=== PATIENT | male | born 1935 | race Caucasian/White ===

== ENCOUNTER 2018-05-08 14:31 | Inpatient (IN) | payer MEDICARE, OTHER ==
[2018-05-08] MEDS ORDERED: Acetaminophen 325 MG Tab PO PRN (18:01)
[2018-05-08] MEDS ORDERED: Lactulose Soln 10 GM/15 ML 30 ML UD Cup PO PRN (18:01)
[2018-05-08] MEDS ORDERED: Ondansetron 4 MG Tab.DIS PO PRN (18:01)
[2018-05-08] MEDS ORDERED: Ondansetron 4 MG/2 ML SDV IV PRN (18:01)
[2018-05-08] MEDS ORDERED: Temazepam 15 MG Cap PO PRN (18:01)
[2018-05-08] MEDS ORDERED: Central TPN 1 ML IV SCH (18:15)
[2018-05-08] MEDS ORDERED: Prochlorperazine 10 MG Tab PO PRN (18:21)
--- NOTE | 2018-05-08 18:41 | PCM.HP ---
H&P History of Present Illness - General Date of Service: 05/08/18 Admit Problem/Dx: Admission Diagnosis/Problem Admission Diagnosis/Problem Carcinoma of esophagus Source of Information: Patient, Old Records - History of Present Illness Initial Comments - Free Text/Narative: Patient admitted swing bed from [place] for ongoing hydration by TPN and physical therapy for strengthening. Patient relates initially was having issues with constipation that was difficult to resolve. Required intervention to clear this and ultimately felt he needed a colonoscopy and EGD. Colonoscopy was noted to have polyps but no evidence of cancer. On January 03, 2018, EGD was done and found to have friable tissue. 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 On February 13, Upper GI endoscopy revealed a mass in the gastric cardia. PET scan done later that month did not show any evidence of metastasis. Patient started concurrent chemoradiation therapy on and finished on 04-18-2018. After completion of radiation, patient was not eating or drinking well and had a 15# weight loss over 2 weeks. Did try outpatient IV therapy but continued to deteriorate. Was taken to [place] by a friend due to concerns of overall status and safety of living alone. Patient was started on TPN as he opted to not have a feeding tube placed. Wasgiven IV dexamehtasone to help with radiation-induced dysphagia. Onset of Symptoms: Reports: Gradual Duration of Symptoms: Reports: Week(s):, Improving Location: Reports: Neck, Abdomen, Generalized Associated Symptoms: Reports: Loss of Appetite, Nausea/Vomiting, Weakness. Denies: Confusion, Chest Pain, Cough, Fever/Chills, Shortness of Breath, Syncope - Related Data Allergies/Adverse Reactions: Allergies Allergy/AdvReac Type Severity Reaction Status Date / Time No Known Allergies Allergy Verified 05/08/18 15:24 Home Medications: Home Meds Prochlorperazine [Compazine] 10 mg PO QID PRN 05/08/18 [History] Past Medical History Gastrointestinal History: Reports: PUD Musculoskeletal History: Reports: Osteoarthritis Oncologic (Cancer) History: Reports: Esophageal Social & Family History - Tobacco Use Smoking Status *Q: Never Smoker - Caffeine Use Caffeine Use: Reports: None - Recreational Drug Use Recreational Drug Use: No - Living Situation & Occupation Living situation: Reports: Single, Alone 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rancher) H&P Review of Systems - Review of Systems: Review Of Systems: See Below General: Reports: Malaise, Weakness, Fatigue, Decreased Appetite. Denies: Fever , Chills HEENT: Reports: Dysphasia. Denies: Ear Pain, Headaches, Rhinitis, Sore Throat, Visual Changes Pulmonary: Denies: Shortness of Breath, Cough Cardiovascular: Denies: Chest Pain, Edema, Lightheadedness Gastrointestinal: Reports: Nausea. Denies: Abdominal Pain, Black Stool, Bloody Stool, Constipation, Diarrhea, Vomiting Genitourinary: Reports: Retention, Other (larsen cath present) Musculoskeletal: Reports: No Symptoms Skin: Reports: No Symptoms Psychiatric: Reports: No Symptoms Exam - Exam Exam: See Below - Vital Signs Vital Signs: Last Vital Signs Temp 97.8 F 05/08/18 18:00 Pulse 76 05/08/18 18:00 Resp 20 05/08/18 18:00 BP 111/62 05/08/18 18:00 Pulse Ox 98 05/08/18 18:00 Weight: 168 lb 11.2 oz - Exam General: Alert, Oriented HEENT: Conjunctiva Clear, Mucosa Moist & [place], Posterior Pharynx Clear Neck: Supple, Other (no radiation ramos/redness noted to neck/chest) Lungs: Clear to Auscultation, Decreased Breath Sounds Cardiovascular: Regular Rate, Regular Rhythm GI/Abdominal Exam: Normal Bowel Sounds, Soft, Non-Tender Extremities: Normal Inspection, No Pedal Edema Skin: Warm, Dry Neuro Extensive - Mental Status: Alert, Oriented x3 Psychiatric: Alert, Normal Affect, Normal Mood - Problem List (1) Esophagus cancer SNOMED Code(s): 635860571 ICD Code: C15.9 - MALIGNANT NEOPLASM OF ESOPHAGUS, UNSPECIFIED Status: Acute Priority: High Current Visit: Yes Qualifiers: Malignant neoplasm of esophagus location: lower third Qualified Code(s): C15.5 - Malignant neoplasm of lower third of esophagus Problem List Initiated/Reviewed/Updated: Yes Orders Last 24hrs: Active Orders 24 hr Category Date Time Status Patient Status [ADT] Routine ADT 05/08/18 17:54 Ordered Communication Order [RC] ROUTINE Care 05/08/18 18:01 Ordered Height and Weight [RC] DAILY Care 05/08/18 17:54 Ordered Intake and Output [RC] QSHIFT Care 05/08/18 18:00 Ordered Oxygen Therapy [RC] PRN Care 05/08/18 17:54 Ordered Up With Assistance [RC] ASDIRECTED Care 05/08/18 17:54 Ordered Vital Signs [RC] Q4H Care 05/08/18 17:54 Ordered PT Evaluation and Treatment [CONS] Routine Cons 05/08/18 18:01 Ordered Mechanical Soft Diet [DIET] Diet 05/08/18 Dinner Ordered Acetaminophen [Tylenol] Med 05/08/18 18:01 Ordered 650 mg PO Q4H PRN Central TPN [Total Parenteral Nutrition, Central] 1,950 Med 05/08/18 18:21 Ordered ml IV Q24H Enoxaparin [Lovenox] Med 05/08/18 18:15 Ordered 30 mg SUBCUT Q24H Finasteride [Proscar] Med 05/08/18 20:00 Ordered 5 mg PO BEDTIME Heparin Sodium [Heparin Lock Flush 100 Units/ML] Med 05/08/18 18:15 Ordered 300 units FLUSH Q24H Lactulose [Cephulac] Med 05/08/18 18:01 Ordered 20 gm PO DAILY PRN Ondansetron [Zofran ODT] Med 05/08/18 18:01 Ordered 4 mg PO Q4H PRN Ondansetron [Zofran] Med 05/08/18 18:01 Ordered 4 mg IV Q4H PRN Pantoprazole [ProTONIX] Med 05/09/18 07:00 Ordered 40 mg PO DAILY@0700 Prochlorperazine [Compazine] Med 05/08/18 18:21 Ordered 10 mg PO QID PRN Tamsulosin [Flomax] Med 05/08/18 20:00 Ordered 0.4 mg PO BEDTIME Temazepam [Restoril] Med 05/08/18 18:01 Ordered 15 mg PO BEDTIME PRN Resuscitation Status Routine Resus Stat 05/08/18 17:54 Ordered Medication Orders Acetaminophen (Tylenol) 650 mg PO Q4H PRN PRN Reason: Pain (Mild 1-3)/fever Enoxaparin Sodium (Lovenox) 30 mg SUBCUT Q24H [facility] Finasteride (Proscar) 5 mg PO BEDTIME [facility] Heparin Sodium (Porcine) (Heparin Lock Flush 100 Units/Ml) 300 units FLUSH Q24H [facility] Non-Formulary Medication (Total Parenteral Nutrition, Central) 1,950 mls @ 81.25 mls/hr IV Q24H [facility] Lactulose (Cephulac) 20 gm PO DAILY PRN PRN Reason: Constipation Ondansetron HCl (Zofran Odt) 4 mg PO Q4H PRN PRN Reason: nausea, able to take PO Ondansetron HCl (Zofran) 4 mg IV Q4H PRN PRN Reason: Nausea/Vomiting Pantoprazole Sodium (Protonix) 40 mg PO DAILY@0700 [facility] Prochlorperazine Maleate (Compazine) 10 mg PO QID PRN PRN Reason: Nausea/Vomiting Tamsulosin HCl (Flomax) 0.4 mg PO BEDTIME [facility] Temazepam (Restoril) 15 mg PO BEDTIME PRN PRN Reason: Insomnia Assessment/Plan Comment:: Patient admitted to swing bed for ongoing nutritional replacement by TPN and PT for strengthening.
[2018-05-08] MEDS ORDERED: [UNRECOGNIZED DRUG - NUTRITION] IV SCH (19:00)
[2018-05-08] MEDS: Tamsulosin 0.4 MG Cap.ER PO SCH (19:39)
[2018-05-08] MEDS: Finasteride 5 MG Tab PO SCH (19:39)
[2018-05-08] MEDS: Enoxaparin 40 MG/0.4 ML Syringe SUBCUT SCH (19:39)
[2018-05-09] MEDS: Pantoprazole 40 MG Tab.CR PO SCH (06:53)
[2018-05-09] MEDS: [UNRECOGNIZED DRUG - NUTRITION] IV SCH (16:03)
[2018-05-09] MEDS: Finasteride 5 MG Tab PO SCH (19:42)
[2018-05-09] MEDS: Enoxaparin 40 MG/0.4 ML Syringe SUBCUT SCH (19:42)
[2018-05-09] MEDS: Tamsulosin 0.4 MG Cap.ER PO SCH (19:42)
[2018-05-10] MEDS: Pantoprazole 40 MG Tab.CR PO SCH (07:04)
[2018-05-10] MEDS: [UNRECOGNIZED DRUG - NUTRITION] IV SCH (16:15)
[2018-05-10] MEDS: Tamsulosin 0.4 MG Cap.ER PO SCH (19:25)
[2018-05-10] MEDS: Finasteride 5 MG Tab PO SCH (19:25)
[2018-05-10] MEDS: Enoxaparin 40 MG/0.4 ML Syringe SUBCUT SCH (19:26)
[2018-05-11] MEDS: Pantoprazole 40 MG Tab.CR PO SCH (07:14)
[2018-05-11] MEDS: [UNRECOGNIZED DRUG - NUTRITION] IV SCH (16:10)
[2018-05-11] MEDS: Enoxaparin 40 MG/0.4 ML Syringe SUBCUT SCH (19:23)
[2018-05-11] MEDS: Finasteride 5 MG Tab PO SCH (19:23)
[2018-05-11] MEDS: Tamsulosin 0.4 MG Cap.ER PO SCH (19:23)
[2018-05-12] MEDS: Pantoprazole 40 MG Tab.CR PO SCH (06:50)
[2018-05-12 08:15] LABS: CHLORIDE,CL 104 mEq/L (98-106); SODIUM,NA 137 mEq/L (136-145)
[2018-05-12] MEDS: [UNRECOGNIZED DRUG - NUTRITION] IV SCH (19:16)
[2018-05-12] MEDS: Enoxaparin 40 MG/0.4 ML Syringe SUBCUT SCH (19:20)
[2018-05-12] MEDS: Tamsulosin 0.4 MG Cap.ER PO SCH (19:20)
[2018-05-12] MEDS: Finasteride 5 MG Tab PO SCH (19:21)
[2018-05-13] MEDS: Ciprofloxacin 500 MG Tab PO SCH ×2 (06:14→18:44)
[2018-05-13] MEDS: Pantoprazole 40 MG Tab.CR PO SCH (06:14)
[2018-05-13] MEDS: [UNRECOGNIZED DRUG - NUTRITION] IV SCH (16:04)
[2018-05-13] MEDS: Enoxaparin 40 MG/0.4 ML Syringe SUBCUT SCH (19:33)
[2018-05-13] MEDS: Tamsulosin 0.4 MG Cap.ER PO SCH (19:33)
[2018-05-13] MEDS: Finasteride 5 MG Tab PO SCH (19:33)
[2018-05-14] MEDS: Ciprofloxacin 500 MG Tab PO SCH ×2 (06:00→18:49)
[2018-05-14] MEDS: Pantoprazole 40 MG Tab.CR PO SCH (06:00)
[2018-05-14] MEDS: [UNRECOGNIZED DRUG - NUTRITION] IV SCH (16:22)
[2018-05-14] MEDS: Finasteride 5 MG Tab PO SCH (20:06)
[2018-05-14] MEDS: Tamsulosin 0.4 MG Cap.ER PO SCH (20:06)
[2018-05-14] MEDS: Enoxaparin 40 MG/0.4 ML Syringe SUBCUT SCH (20:06)
[2018-05-15] MEDS: Pantoprazole 40 MG Tab.CR PO SCH (06:46)
[2018-05-15] MEDS: Ciprofloxacin 500 MG Tab PO SCH ×2 (06:46→19:43)
[2018-05-15] MEDS: [UNRECOGNIZED DRUG - NUTRITION] IV SCH (16:12)
[2018-05-15] MEDS: Finasteride 5 MG Tab PO SCH (19:43)
[2018-05-15] MEDS: Tamsulosin 0.4 MG Cap.ER PO SCH (19:43)
[2018-05-15] MEDS: Enoxaparin 40 MG/0.4 ML Syringe SUBCUT SCH (19:43)
[2018-05-16] MEDS: Pantoprazole 40 MG Tab.CR PO SCH (06:12)
[2018-05-16] MEDS: Ciprofloxacin 500 MG Tab PO SCH ×2 (06:12→18:12)
[2018-05-16] MEDS: [UNRECOGNIZED DRUG - NUTRITION] IV SCH (16:16)
[2018-05-16] MEDS: Finasteride 5 MG Tab PO SCH (19:57)
[2018-05-16] MEDS: Enoxaparin 40 MG/0.4 ML Syringe SUBCUT SCH (19:57)
[2018-05-16] MEDS: Tamsulosin 0.4 MG Cap.ER PO SCH (19:57)
[2018-05-17] MEDS: Ciprofloxacin 500 MG Tab PO SCH ×2 (06:24→18:34)
[2018-05-17] MEDS: Pantoprazole 40 MG Tab.CR PO SCH (06:24)
[2018-05-17] MEDS: [UNRECOGNIZED DRUG - NUTRITION] IV SCH (16:16)
[2018-05-17] MEDS: Tamsulosin 0.4 MG Cap.ER PO SCH (19:35)
[2018-05-17] MEDS: Finasteride 5 MG Tab PO SCH (19:36)
[2018-05-17] MEDS: Enoxaparin 40 MG/0.4 ML Syringe SUBCUT SCH (19:36)
[2018-05-18] MEDS: Pantoprazole 40 MG Tab.CR PO SCH (06:01)
[2018-05-18] MEDS: Ciprofloxacin 500 MG Tab PO SCH (06:01)
[2018-05-18] MEDS: [UNRECOGNIZED DRUG - NUTRITION] IV SCH (16:04)
[2018-05-18] MEDS: Finasteride 5 MG Tab PO SCH (19:26)
[2018-05-18] MEDS: Enoxaparin 40 MG/0.4 ML Syringe SUBCUT SCH (19:26)
[2018-05-18] MEDS: Tamsulosin 0.4 MG Cap.ER PO SCH (19:26)
[2018-05-19] MEDS: Pantoprazole 40 MG Tab.CR PO SCH (06:26)
[2018-05-19 08:09] LABS: CHLORIDE,CL 107 mEq/L (98-106); SODIUM,NA 141 mEq/L (136-145)
[2018-05-19] MEDS ORDERED: [UNRECOGNIZED DRUG - NUTRITION] IV SCH (16:00)
[2018-05-19] MEDS: Finasteride 5 MG Tab PO SCH (19:36)
[2018-05-19] MEDS: Tamsulosin 0.4 MG Cap.ER PO SCH (19:36)
[2018-05-19] MEDS: Enoxaparin 40 MG/0.4 ML Syringe SUBCUT SCH (19:36)
[2018-05-20] MEDS: Pantoprazole 40 MG Tab.CR PO SCH (06:34)
[2018-05-20] MEDS ORDERED: [UNRECOGNIZED DRUG - NUTRITION] IV SCH (16:00)
[2018-05-20] MEDS: Finasteride 5 MG Tab PO SCH (19:30)
[2018-05-20] MEDS: Enoxaparin 40 MG/0.4 ML Syringe SUBCUT SCH (19:30)
[2018-05-20] MEDS: Tamsulosin 0.4 MG Cap.ER PO SCH (19:30)
[2018-05-21] MEDS: Pantoprazole 40 MG Tab.CR PO SCH (06:53)
[2018-05-21] MEDS: Tamsulosin 0.4 MG Cap.ER PO SCH (19:38)
[2018-05-21] MEDS: Enoxaparin 40 MG/0.4 ML Syringe SUBCUT SCH (19:38)
[2018-05-21] MEDS: Finasteride 5 MG Tab PO SCH (19:38)
[2018-05-22] MEDS: Pantoprazole 40 MG Tab.CR PO SCH (06:19)
--- NOTE | 2018-05-22 09:19 | PCM.PN ---
- General Info Date of Service: 05/22/18 Admission Dx/Problem (Free Text): Admission Diagnosis/Problem Admission Diagnosis/Problem Carcinoma of esophagus Functional Status: Reports: Pain Controlled, Tolerating Diet, Ambulating, Urinating - Review of Systems General: Reports: Weakness. Denies: Fever HEENT: Reports: No Symptoms Pulmonary: Denies: Shortness of Breath, Cough Cardiovascular: Denies: Chest Pain, Edema, Lightheadedness Gastrointestinal: Denies: Abdominal Pain, Nausea, Vomiting Genitourinary: Reports: No Symptoms Musculoskeletal: Reports: Other (Has weakness in left ankle due to previous disability) Skin: Reports: No Symptoms Neurological: Reports: No Symptoms - Patient Data Vitals - Most Recent: Last Vital Signs Temp 98.1 F 05/22/18 07:37 Pulse 78 05/22/18 07:37 Resp 18 05/22/18 07:37 BP 117/68 05/22/18 07:37 Pulse Ox 97 05/22/18 07:37 Weight - Most Recent: 174 lb 6.4 oz Med Orders - Current: Current Medications Acetaminophen (Tylenol) 650 mg PO Q4H PRN PRN Reason: Pain (Mild 1-3)/fever Enoxaparin Sodium (Lovenox) 40 mg SUBCUT Q24H [facility] Last Admin: 05/21/18 19:38 Dose: 40 mg Finasteride (Proscar) 5 mg PO BEDTIME [facility] Last Admin: 05/21/18 19:38 Dose: 5 mg Heparin Sodium (Porcine) (Heparin Lock Flush 100 Units/Ml) 300 units FLUSH 1600 [facility] Last Admin: 05/21/18 18:28 Dose: 300 units Lactulose (Cephulac) 20 gm PO DAILY PRN PRN Reason: Constipation Last Admin: 05/14/18 07:24 Dose: 20 gm Ondansetron HCl (Zofran Odt) 4 mg PO Q4H PRN PRN Reason: nausea, able to take PO Ondansetron HCl (Zofran) 4 mg IV Q4H PRN PRN Reason: Nausea/Vomiting Pantoprazole Sodium (Protonix) 40 mg PO DAILY@0700 [facility] Last Admin: 05/22/18 06:19 Dose: 40 mg Prochlorperazine Maleate (Compazine) 10 mg PO QID PRN PRN Reason: Nausea/Vomiting Tamsulosin HCl (Flomax) 0.4 mg PO BEDTIME [facility] Last Admin: 05/21/18 19:38 Dose: 0.4 mg Temazepam (Restoril) 15 mg PO BEDTIME PRN PRN Reason: Insomnia Discontinued Medications Ciprofloxacin (Ciprofloxacin Hcl) 500 mg PO 0700,1900 [facility] Stop: 05/18/18 07:01 Last Admin: 05/18/18 06:01 Dose: 500 mg Heparin Sodium (Porcine) (Heparin Lock Flush 100 Units/Ml) 300 units FLUSH Q24H [facility] Heparin Sodium (Porcine) (Heparin Lock Flush 100 Units/Ml) 300 units FLUSH Q24H [facility] Last Admin: 05/19/18 12:56 Dose: Not Given Non-Formulary Medication (Total Parenteral Nutrition, Central) 1 mls @ 0.042 mls/hr IV Q24H [facility] Last Admin: 05/08/18 18:29 Dose: Not Given Non-Formulary Medication (Total Parenteral Nutrition, Central) 1,950 mls @ 81.25 mls/hr IV Q24H [facility] Last Admin: 05/08/18 18:50 Dose: 81.25 mls/hr Non-Formulary Medication (Total Parenteral Nutrition, Central) 1,950 mls @ 81.25 mls/hr IV 1600 [facility] Last Admin: 05/18/18 16:04 Dose: 81.25 mls/hr Non-Formulary Medication (Total Parenteral Nutrition, Central) 1,950 mls @ 60 mls/hr IV 1600 [facility] Last Admin: 05/19/18 16:18 Dose: 60 mls/hr Non-Formulary Medication (Total Parenteral Nutrition, Central) 1,950 mls @ 40 mls/hr IV 1600 [facility] Last Admin: 05/20/18 15:57 Dose: 40 mls/hr - Exam General: Alert, Oriented HEENT: Mucous Membr. Moist/[place] Neck: Supple Lungs: Clear to Auscultation, Normal Respiratory Effort Cardiovascular: Regular Rate, Regular Rhythm GI/Abdominal Exam: Normal Bowel Sounds, Soft, Non-Tender Extremities: Normal Inspection, No Pedal Edema Skin: Warm, Dry Neurological: No New Focal Deficit - Problem List & Annotations (1) Esophagus cancer SNOMED Code(s): 135768619 Code(s): C15.9 - MALIGNANT NEOPLASM OF ESOPHAGUS, UNSPECIFIED Status: Acute Priority: High Current Visit: Yes Qualifiers: Malignant neoplasm of esophagus location: lower third Qualified Code(s): C15.5 - Malignant neoplasm of lower third of esophagus - Problem List Review Problem List Initiated/Reviewed/Updated: Yes - Assessment Assessment:: Esophageal Cancer - Plan Plan:: Patient admitted to swing bed for ongoing nutritional replacement by TPN and PT for strengthening. 05-22-2018 Patient seen today for 14 day recert. He is doing well. TPN has been discontinued as patient has been tolerating an oral diet and is gaining weight. Has no pain or dysphagia. No nausea or vomiting. He does have difficulty with weakness in his left ankle, is unstable from a previous deformity. 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 His source of running water is in his basement, no indoor toilet but patient is not concerned about this. Has managed "for 85 years like this". Physical therapy does feel he is ambulating well and can care for himself at this point. Plan for discharge home tomorrow. Patient declines any services at home.
[2018-05-22] MEDS: Finasteride 5 MG Tab PO SCH (19:38)
[2018-05-22] MEDS: Enoxaparin 40 MG/0.4 ML Syringe SUBCUT SCH (19:38)
[2018-05-22] MEDS: Tamsulosin 0.4 MG Cap.ER PO SCH (19:38)
[2018-05-23] MEDS: Pantoprazole 40 MG Tab.CR PO SCH (07:10)
--- NOTE | 2018-05-23 22:13 | PCM.DCSUM1 ---
Discharge Summary - Hospital Course Free Text/Narrative:: Patient admitted swing bed from [place] due need for TPN following treatment for adenocarcinoma of the esophagus. Patient initially had issues with constipation and presented for evaluation of this. Did require treatment for the constipation and thus required further work up with colonoscopy and EGD. EGD was found to note friable tissue, biopsies done which was positive. PET scan negative. Started chemoradiation therapy but after completion of radiation , had trouble eating or drinking and continued to lose weight. Lost 15# over 2 weeks. Initially tried outpatient IV therapy without success. Was taken to [place] and started on TPN. Discharged from [place] to [facility] for ongoing TPN and physical therapy. Diagnosis: Stroke: No - Discharge Data Discharge Date: 05/23/18 Discharge Disposition: Home, Self-Care 01 Condition: Good - Discharge Diagnosis/Problem(s) (1) Esophagus cancer SNOMED Code(s): 097720731 ICD Code: C15.9 - MALIGNANT NEOPLASM OF ESOPHAGUS, UNSPECIFIED Status: Acute Priority: High Qualifiers: Malignant neoplasm of esophagus location: lower third Qualified Code(s): C15.5 - Malignant neoplasm of lower third of esophagus - Patient Summary/Data Complications: none Consults: Consultations 05/08/18 18:01 PT Evaluation and Treatment [CONS] Routine Hospital Course: patient has done well since admission. Has slowly returned to eating a normal diet. Has gained weight since admission. TPN has been able to be discontinued as a result. Patient does have ankle pain/weakness chronically which has hindered his physical therapy but his strength has returned. He is ambulating well, handling stairs now. Constipation concerns have been controlled. Not requiring pain medications at this point. Will return home. Declines home health. Does have a friend who looks in on him daily. Have been concerned about patient's home safety/situation as he does not have an indoor toilet and only running water is from a spicket in the basement but he declines any services and has been caring for self over the week here. Will follow up at [facility] as previously scheduled. - Patient Instructions Diet: Usual Diet as Tolerated Activity: As Tolerated - Discharge Plan *PRESCRIPTION DRUG MONITORING PROGRAM REVIEWED*: No *COPY OF PRESCRIPTION DRUG MONITORING REPORT IN PATIENT CELINE: No Prescriptions/Med Rec: Pantoprazole [ProTONIX] 40 mg PO DAILY@0700 #30 tab.cr Tamsulosin [Flomax] 0.4 mg PO BEDTIME #30 cap.er Home Medications: Home Meds Prochlorperazine [Compazine] 10 mg PO QID PRN 05/08/18 [History] Pantoprazole [ProTONIX] 40 mg PO DAILY@0700 #30 tab.cr 05/22/18 [Rx] Tamsulosin [Flomax] 0.4 mg PO BEDTIME #30 cap.er 05/22/18 [Rx] Oxygen Therapy Mode: Nasal Cannula - Discharge Summary/Plan Comment DC Time >30 min.: No - General Info Date of Service: 05/23/18 Admission Dx/Problem (Free Text: Admission Diagnosis/Problem Admission Diagnosis/Problem Carcinoma of esophagus Functional Status: Reports: Pain Controlled, Tolerating Diet, Ambulating - Review of Systems General: Reports: Weakness. Denies: Fever, Fatigue HEENT: Reports: No Symptoms Pulmonary: Denies: Shortness of Breath, Cough Cardiovascular: Denies: Chest Pain, Edema, Lightheadedness Gastrointestinal: Denies: Abdominal Pain, Nausea, Vomiting Genitourinary: Denies: Dysuria Musculoskeletal: Reports: No Symptoms Skin: Reports: No Symptoms Neurological: Reports: No Symptoms - Patient Data Vitals - Most Recent: Last Vital Signs Temp 97.5 F 05/23/18 07:25 Pulse 80 05/23/18 07:25 Resp 20 05/23/18 07:25 BP 120/71 05/23/18 07:25 Pulse Ox 95 05/23/18 07:25 Weight - Most Recent: 173 lb 3.2 oz Med Orders - Current: Current Medications Discontinued Medications Acetaminophen (Tylenol) 650 mg PO Q4H PRN PRN Reason: Pain (Mild 1-3)/fever Ciprofloxacin (Ciprofloxacin Hcl) 500 mg PO 0700,1900 [facility] Stop: 05/18/18 07:01 Last Admin: 05/18/18 06:01 Dose: 500 mg Enoxaparin Sodium (Lovenox) 40 mg SUBCUT Q24H [facility] Last Admin: 05/22/18 19:38 Dose: 40 mg Finasteride (Proscar) 5 mg PO BEDTIME [facility] Last Admin: 05/22/18 19:38 Dose: 5 mg Heparin Sodium (Porcine) (Heparin Lock Flush 100 Units/Ml) 300 units FLUSH Q24H [facility] Heparin Sodium (Porcine) (Heparin Lock Flush 100 Units/Ml) 300 units FLUSH Q24H [facility] Last Admin: 05/19/18 12:56 Dose: Not Given Heparin Sodium (Porcine) (Heparin Lock Flush 100 Units/Ml) 300 units FLUSH 1600 [facility] Last Admin: 05/22/18 16:55 Dose: 300 units Non-Formulary Medication (Total Parenteral Nutrition, Central) 1 mls @ 0.042 mls/hr IV Q24H [facility] Last Admin: 05/08/18 18:29 Dose: Not Given Non-Formulary Medication (Total Parenteral Nutrition, Central) 1,950 mls @ 81.25 mls/hr IV Q24H [facility] Last Admin: 05/08/18 18:50 Dose: 81.25 mls/hr Non-Formulary Medication (Total Parenteral Nutrition, Central) 1,950 mls @ 81.25 mls/hr IV 1600 [facility] Last Admin: 05/18/18 16:04 Dose: 81.25 mls/hr Non-Formulary Medication (Total Parenteral Nutrition, Central) 1,950 mls @ 60 mls/hr IV 1600 [facility] Last Admin: 05/19/18 16:18 Dose: 60 mls/hr Non-Formulary Medication (Total Parenteral Nutrition, Central) 1,950 mls @ 40 mls/hr IV 1600 [facility] Last Admin: 05/20/18 15:57 Dose: 40 mls/hr Lactulose (Cephulac) 20 gm PO DAILY PRN PRN Reason: Constipation Last Admin: 05/14/18 07:24 Dose: 20 gm Ondansetron HCl (Zofran Odt) 4 mg PO Q4H PRN PRN Reason: nausea, able to take PO Ondansetron HCl (Zofran) 4 mg IV Q4H PRN PRN Reason: Nausea/Vomiting Pantoprazole Sodium (Protonix) 40 mg PO DAILY@0700 [facility] Last Admin: 05/23/18 07:10 Dose: 40 mg Prochlorperazine Maleate (Compazine) 10 mg PO QID PRN PRN Reason: Nausea/Vomiting Tamsulosin HCl (Flomax) 0.4 mg PO BEDTIME [facility] Last Admin: 05/22/18 19:38 Dose: 0.4 mg Temazepam (Restoril) 15 mg PO BEDTIME PRN PRN Reason: Insomnia - Exam General: Reports: Alert, Oriented HEENT: Reports: Mucous Membr. Moist/[place] Neck: Reports: Supple Lungs: Reports: Clear to Auscultation, Normal Respiratory Effort Cardiovascular: Reports: Regular Rate, Regular Rhythm GI/Abdominal Exam: Normal Bowel Sounds, Soft, Non-Tender Extremities: Normal Inspection, No Pedal Edema Skin: Reports: Warm, Dry Neurological: Reports: No New Focal Deficit
== END 2018-05-23 13:35 | disposition home or self-care (01) | DRG 948 ==
LOC: CC.MS 17:16 → UNDOADMIN 17:16 → CC.MS 17:54
PROVIDERS: ADMIT Family Medicine; ATTEND Family Medicine
PROC: 3E0336Z Introduction of Nutritional Substance into Peripheral Vein, Percutaneous Approach (ICD-10-PCS; principal; 2018-05-08)
DX: R53.1 Weakness (principal); C15.5 Malignant neoplasm of lower third of esophagus; K59.00 Constipation, unspecified; M25.579 Pain in unspecified ankle and joints of unspecified foot; M19.90 Unspecified osteoarthritis, unspecified site; R33.9 Retention of urine, unspecified; Z79.899 Other long term (current) drug therapy; Z86.010 Personal history of colon polyps; Z87.11 Personal history of peptic ulcer disease
CPT/HCPCS: 36415; 80069; 83735; 97110-GP; 97116-GP; 97161-GP; 97530-GP; A9270-GY; J1642; J1650

== ENCOUNTER 2018-09-27 08:35 | Emergency (ER) | payer MEDICARE, OTHER ==
[2018-09-27] MEDS ORDERED: Oxymetazoline 0.05% Nasal Spray 15 ML Bottle NAS ONE ×2 (08:36→09:00)
[2018-09-27] MEDS ORDERED: EPINEPHrine Nasal Soln 30 MG/30 ML Bottle NAS ONE (08:36)
--- NOTE | 2018-09-27 10:51 | EDM.PDOC ---
ED HPI GENERAL MEDICAL PROBLEM - General Chief Complaint: General Stated Complaint: nose bleed Time Seen by Provider: 09/27/18 08:40 Source of Information: Reports: Patient, Retirement Records History Limitations: Reports: No Limitations - History of Present Illness INITIAL COMMENTS - FREE TEXT/NARRATIVE: Patient presents to ER from [facility] with a nurse bleed that has persisted for over 30 minutes. Patient states he has had these in the past but has always been able to control them and the bleeding subsided much quicker. He is currently on Plavix, due for a heart procedure in October. Denies any pain at present. No shortness of breath. Denies nausea. Onset: Today, Sudden Duration: Minutes: Location: Reports: Face Associated Symptoms: Reports: No Other Symptoms - Related Data Allergies Allergy/AdvReac Type Severity Reaction Status Date / Time No Known Allergies Allergy Verified 09/27/18 08:53 Home Meds: Home Meds Prochlorperazine [Compazine] 10 mg PO QID PRN 05/08/18 [History] Pantoprazole [ProTONIX] 40 mg PO DAILY@0700 #30 tab.cr 05/22/18 [Rx] Tamsulosin [Flomax] 0.4 mg PO BEDTIME #30 cap.er 05/22/18 [Rx] Aspirin 325 mg PO DAILY 09/27/18 [History] Budesonide [Pulmicort] 1 dose INH BID 09/27/18 [History] Clopidogrel [Plavix] 75 mg PO DAILY 09/27/18 [History] Ipratropium [place] 0.5 unit INH BID 09/27/18 [History] Ipratropium/Albuterol Sulfate [Iprat-Albut 0.5-3(2.5) MG/3 ML] 1 dose INH Q2H PRN 09/27/18 [History] Levalbuterol HCl 1 dose INH BID 09/27/18 [History] Nitroglycerin [Nitrostat] 0.4 mg SL Q5M PRN MDD 1.2 09/27/18 [History] Sulfamethoxazole/Trimethoprim [Sulfamethoxazole-Tmp Ds Tablet] 1 tab PO ASDIRECTED 09/27/18 [History] atorvaSTATin [Lipitor] 40 mg PO DAILY 09/27/18 [History] Past Medical History HEENT History: Reports: Epistaxis Cardiovascular History: Reports: High Cholesterol, Hypertension, [place] Other Cardiovascular History: CORONARY ATHEROSCLEROSIS Respiratory History: Reports: Other (See Below) Other Respiratory History: MULTIPLE NEBULIZERS, NOT SURE IF HE HAS COPD Gastrointestinal History: Reports: PUD Other Gastrointestinal History: ESOPHAGITITS Genitourinary History: Reports: BPH Musculoskeletal History: Reports: Osteoarthritis Oncologic (Cancer) History: Reports: Esophageal - Past Surgical History GI Surgical History: Reports: Colonoscopy, EGD Social & Family History - Family History Family Medical History: Noncontributory - Tobacco Use Smoking Status *Q: Never Smoker Second Hand Smoke Exposure: No - Caffeine Use Caffeine Use: Reports: None - Recreational Drug Use Recreational Drug Use: No - Living Situation & Occupation Living situation: Reports: Single, Alone 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[employer]) ED ROS GENERAL - Review of Systems Review Of Systems: See Below Constitutional: Denies: Fever, Chills, Malaise, Weakness, Decreased Appetite HEENT: Reports: Nosebleed Respiratory: Denies: Shortness of Breath Cardiovascular: Denies: Chest Pain, Edema, Lightheadedness Endocrine: Denies: Fatigue GI/Abdominal: Denies: Abdominal Pain, Nausea, Vomiting : Reports: No Symptoms Musculoskeletal: Reports: No Symptoms Skin: Reports: No Symptoms ED EXAM, GENERAL - Physical Exam Exam: See Below Exam Limited By: No Limitations General Appearance: Alert, WD/WN, No Apparent Distress Ears: Normal External Exam, Normal TMs Nose: Other (persistent bleeding noted from left nare. Unable to determine source of bleeding due to large amount of blood. ) Throat/Mouth: Normal Inspection, Other (posterior pharynx noted to have bloody drainage) Head: Normocephalic Neck: Normal Inspection, Supple, Non-Tender Respiratory/Chest: Lungs Clear ED GENERAL MEDICAL PROCEDURES - Additional/Other Procedure(s) Other (Free Text) Procedure(s): Persistent bleeding from left nare. Did apply pressure and utilize Afrin to slow the bleeding. Inserted a gel foam saturated with adrenalin and the bleeding did cease. However, after about 15 minutes, patient sneezed, gel foam dislodged and small amount of bleeding noted yet again. Reinserted gel foam again with adrenalin, applied pressure and were able to get the bleeding to stop. Monitored the patient for an hour with no further bleeding. Course - Vital Signs Last Recorded V/S: Last Vital Signs Temp 96.3 F 09/27/18 09:09 Pulse 95 09/27/18 09:09 Resp 20 09/27/18 09:09 BP 112/82 09/27/18 09:09 Pulse Ox 94 L 09/27/18 09:09 Departure - Departure Time of Disposition: 10:50 Disposition: Home, Self-Care 01 Condition: Fair Clinical Impression: Epistaxis - Discharge Information *PRESCRIPTION DRUG MONITORING PROGRAM REVIEWED*: No *COPY OF PRESCRIPTION DRUG MONITORING REPORT IN PATIENT CELINE: No Referrals: PCP,None [Primary Care Provider] - Forms: ED Department Discharge Additional Instructions: 1. Keep nasal packing in until tomorrow 2. Use nasal pincher if bleeds and if continues to bleed after 20 minutes, may need to return to ER 3. Follow up with concerns.
[2018-09-27] MEDS ORDERED: EPINEPHrine Nasal Soln 30 MG/30 ML Bottle NAS PRN (15:03)
== END 2018-09-27 11:25 | disposition home or self-care (01) ==
LOC: CC.ED 08:35
DX: R04.0 Epistaxis (principal); I10 Essential (primary) hypertension; I25.2 Old myocardial infarction; Z79.899 Other long term (current) drug therapy
CPT/HCPCS: 99282; A9270-GY

== ENCOUNTER 2019-06-28 20:32 | Emergency (ER) | payer MEDICARE, OTHER ==
[2019-06-28] MEDS ORDERED: Oxymetazoline 0.05% Nasal Spray 15 ML Bottle NAS ONE (21:00)
--- NOTE | 2019-06-28 21:13 | EDM.PDOC ---
ED HPI GENERAL MEDICAL PROBLEM - General Chief Complaint: General Stated Complaint: I have a nose bleed Time Seen by Provider: 06/28/19 21:00 Source of Information: Reports: Patient, Family History Limitations: Reports: No Limitations - History of Present Illness INITIAL COMMENTS - FREE TEXT/NARRATIVE: This patient is an 84 year old male that presents to the ER. Patient is a resident at the [facility]. Patient reports that he has had nosebleeds on and off for a couple days. Patient reports that this evening his left nose started bleeding. He reports the nurse put vaseline up his nose then put 2x2 up his nose, but it kept bleeding. Patient is on Plavix. Patient presents with bleeding to the left nare. Patient reports he has had some congestion, sneezing , blowing his nose. Onset: Today Onset Date: 06/28/19 Duration: Hour(s): (1) Severity: Mild Improves with: Reports: None Worsens with: Reports: None Associated Symptoms: Reports: No Other Symptoms. Denies: Confusion, Chest Pain , Cough, cough w sputum, Diaphoresis, Fever/Chills, Headaches, Loss of Appetite , Nausea/Vomiting, Rash, Seizure, Shortness of Breath, Syncope, Weakness - Related Data Allergies Allergy/AdvReac Type Severity Reaction Status Date / Time No Known Allergies Allergy Verified 06/28/19 22:17 Home Meds: Home Meds Prochlorperazine [Compazine] 10 mg PO QID PRN 05/08/18 [History] Pantoprazole [ProTONIX] 40 mg PO DAILY@0700 #30 tab.cr 05/22/18 [Rx] Tamsulosin [Flomax] 0.4 mg PO BEDTIME #30 cap.er 05/22/18 [Rx] Aspirin 325 mg PO DAILY 09/27/18 [History] Budesonide [Pulmicort] 1 dose INH BID 09/27/18 [History] Clopidogrel [Plavix] 75 mg PO DAILY 09/27/18 [History] Ipratropium [place] 0.5 unit INH BID 09/27/18 [History] Ipratropium/Albuterol Sulfate [Iprat-Albut 0.5-3(2.5) MG/3 ML] 1 dose INH Q2H PRN 09/27/18 [History] Levalbuterol HCl 1 dose INH BID 09/27/18 [History] Nitroglycerin [Nitrostat] 0.4 mg SL Q5M PRN MDD 1.2 09/27/18 [History] Sulfamethoxazole/Trimethoprim [Sulfamethoxazole-Tmp Ds Tablet] 1 tab PO ASDIRECTED 09/27/18 [History] atorvaSTATin [Lipitor] 40 mg PO DAILY 09/27/18 [History] Amoxicillin/Clavulanate K [Augmentin 875-125 MG] 1 tab PO BID #20 tablet [Rx] Past Medical History HEENT History: Reports: Epistaxis Cardiovascular History: Reports: High Cholesterol, Hypertension, [place] Other Cardiovascular History: CORONARY ATHEROSCLEROSIS Respiratory History: Reports: Other (See Below) Other Respiratory History: MULTIPLE NEBULIZERS, NOT SURE IF HE HAS COPD Gastrointestinal History: Reports: PUD Other Gastrointestinal History: ESOPHAGITITS Genitourinary History: Reports: BPH Musculoskeletal History: Reports: Osteoarthritis Oncologic (Cancer) History: Reports: Esophageal - Past Surgical History GI Surgical History: Reports: Colonoscopy, EGD Social & Family History - Family History Family Medical History: Noncontributory - Caffeine Use Caffeine Use: Reports: None - Living Situation & Occupation Living situation: Reports: Single, Alone 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[employer]) ED ROS GENERAL - Review of Systems Review Of Systems: See Below Constitutional: Reports: No Symptoms HEENT: Reports: Nosebleed, Sinus Problem (congestion, sneezing.) Respiratory: Reports: No Symptoms Cardiovascular: Reports: No Symptoms Endocrine: Reports: No Symptoms GI/Abdominal: Reports: No Symptoms : Reports: No Symptoms Musculoskeletal: Reports: No Symptoms Skin: Reports: No Symptoms Neurological: Reports: No Symptoms Psychiatric: Reports: No Symptoms Hematologic/Lymphatic: Reports: No Symptoms Immunologic: Reports: No Symptoms ED EXAM, GENERAL - Physical Exam Exam: See Below Exam Limited By: No Limitations General Appearance: Alert, WD/WN, No Apparent Distress Eye Exam: Bilateral Eye: Normal Inspection, PERRL Ears: Normal External Exam, Normal Canal, Hearing Grossly Normal, Normal TMs Ear Exam: Bilateral Ear: Auricle Normal, Canal Normal, TM normal Nose: Normal Mucosa, Other (left nare epitaxis active. Unable to find source of bleeding. ) Throat/Mouth: Normal Lips, Normal Teeth, Normal Gums, Normal Voice, No Airway Compromise. No: Normal Oropharynx (blood) Head: Atraumatic, Normocephalic Neck: Normal Inspection, Supple Respiratory/Chest: No Respiratory Distress, Lungs Clear, Normal Breath Sounds, No Accessory Muscle Use Cardiovascular: Normal Peripheral Pulses, Regular Rate, Rhythm, No Edema, No Gallop, No JVD, No Murmur, No Rub Peripheral Pulses: 2+: Radial (L), Radial (R) Neurological: Alert Psychiatric: Normal Affect, Normal Mood Skin Exam: Warm, Dry, Normal Color, No Rash Course - Vital Signs Last Recorded V/S: Last Vital Signs Temp 97.2 F 06/28/19 20:35 Pulse 74 06/28/19 20:35 Resp 20 06/28/19 20:35 BP 116/68 06/28/19 20:35 Pulse Ox 94 L 06/28/19 20:35 - Orders/Labs/Meds Labs: Laboratory Tests 06/28/19 Range/Units 21:14 WBC 5.8 (5.0-10.0) 10^3/uL RBC 4.63 (4.50-6.00) 10^6/uL Hgb 13.9 L (14.0-18.0) g/dL Hct 41.4 (40.0-54.0) % MCV 89.4 (82.0-94.0) fL MCH 30.0 (27.0-32.0) pg MCHC 33.6 (33.0-38.0) g/dL RDW Coeff of Reed 14.1 (11.0-15.0) % Plt Count 227 (150-400) 10^3/uL Neut % (Auto) 65.6 (35-85) % Lymph % (Auto) 12.0 (10-55) % [place]royo % (Auto) 14.4 (0-16) % Eos % (Auto) 7.5 H (0-5) % Baso % (Auto) 0.5 (0-3) % Neut # (Auto) 3.78 (1.80-7.00) 10^3/uL Lymph # (Auto) 0.69 L (1.00-4.80) 10^3/uL [place]o # (Auto) 0.83 H (0.00-0.80) 10^3/uL Eos # (Auto) 0.43 (0.00-0.45) 10^3/uL Baso # (Auto) 0.03 10^3/uL Meds: Medications Discontinued Medications Generic Name Dose Route Start Last Admin Trade Name [place] PRN Reason Stop Dose Admin Lidocaine HCl 5 ml 06/28/19 21:30 06/28/19 22:31 Xylocaine 2% Jelly TOP 06/28/19 21:31 1 applic ONETIME ONE Administration Neomycin/Polymyxin/Bacitracin Confirm 06/28/19 21:50 06/28/19 22:31 Triple Antibiotic Oint Administered 06/28/19 21:51 2 each Dose Administration 2 each .ROUTE .STK-MED ONE Oxymetazoline HCl 1 ml 06/28/19 21:00 06/28/19 21:00 Afrin Original 0.05% Nasal [place] CHANDAN 06/28/19 21:01 4 sprays ONETIME ONE Administration - Re-Assessments/Exams Free Text/Narrative Re-Assessment/Exam: 06/28/19 22:14 The patient had direct pressure with two clamps and ice and afrin. Nose continued to bleed after 30 minutes of direct pressure. Then, I placed Lidocaine 2% jelly to the left nare, waited 15 minutes, then explored the left nare with nare screen printing cloth spreader and light. At the time I was exploring I do not see any source of bleed. The nare is not actively bleeding. No specific location found to use cautery. This patient has had nose bleeding on and off for a couple of days. I suspect this nose will bleed again if not packed. Especially, patient keeps touching the nose and attempting to blow it. Patient is educated about not touching and not blowing nose. Packing is applied to the left nare, it is a stick foam deputy general counsel after applying NS. Bacitracin was applied to this stick. No complications after this packing was placed. No rhino rocket with balloon is available. No active bleeding now. will hold patient 30 minutes to observe and if no active bleeding will discharge. Departure - Departure Time of Disposition: 22:40 Disposition: Home, Self-Care 01 Condition: Fair Clinical Impression: Epistaxis - Discharge Information *PRESCRIPTION DRUG MONITORING PROGRAM REVIEWED*: Not Applicable *COPY OF PRESCRIPTION DRUG MONITORING REPORT IN PATIENT CELINE: Not Applicable Prescriptions: Amoxicillin/Clavulanate K [Augmentin 875-125 MG] 1 tab PO BID #20 tablet Instructions: Nosebleed, [id number] Forms: ED Department Discharge Additional Instructions: Followup with your primary care provider in 2 days for packing removal and recheck Leave packing in place Followup with ENT if nosebleeds continue Return to the ER for worsening of condition or any emergent concerns If nose begins to bleed (even if around the packing): Tilt head forward, apply direct firm pressure to the flexible/far bridge of nose for at least 30 minutes , may apply ice to the nose. Do not sleep laying flat If bleeding still continues after direct pressure for 30 minutes and ice, then return to the ER. Do not pick nose, do not touch the nose, do not blow nose, try not to sneeze. May apply neosporin in the nostril gently May continue Plavix and all other home medications Augmentin 875mg 1 pill twice a day for 10 days #20 no refill ([facility]) Sepsis Event Note - Focused Exam Vital Signs: Vital Signs Temp Pulse Resp BP Pulse Ox 06/28/19 20:35 97.2 F 74 20 116/68 94 L Date Exam was Performed: 06/28/19 Time Exam was Performed: 22:34 - Assessment/Plan Plan: PLEASE SEE RN NOTE FOR PFSH
[2019-06-28] MEDS ORDERED: Lidocaine 2% Jelly 5 ML Tube TOP ONE (21:30)
[2019-06-28] MEDS: Bacitracin/Neomycin/Polymyxin B Oint 0.9 GM U/D Packet ONE ×2 (22:00→22:31)
== END 2019-06-28 22:45 | disposition home or self-care (01) ==
LOC: CC.ED 20:32
DX: R04.0 Epistaxis (principal); I10 Essential (primary) hypertension; I25.2 Old myocardial infarction; Z79.82 Long term (current) use of aspirin; Z79.899 Other long term (current) drug therapy
CPT/HCPCS: 30901; 36415; 85025; 99283

== ENCOUNTER 2019-07-01 16:25 | Emergency (ER) | payer MEDICARE, OTHER ==
--- NOTE | 2019-07-01 17:41 | EDM.PDOC ---
ED HPI GENERAL MEDICAL PROBLEM - General Chief Complaint: General Stated Complaint: NOSE BLEED Time Seen by Provider: 07/01/19 16:35 Source of Information: Reports: Patient, Intermediate Records History Limitations: Reports: No Limitations - History of Present Illness INITIAL COMMENTS - FREE TEXT/NARRATIVE: Patient presents to ER with a nose bleed. Had a similar bleed on Saturday, was seen in the ER and packing was placed as they could not control the bleed. Dr. Aaron removed the packing yesterday, was started on Augmentin but that was discontinued today as patient was not tolerating the med. He started coughing today and his nose started bleeding again. The intermediate applied pressure but was unable to get it controlled. On arrival here, a clamp was placed on his nose and now the bleeding has slowed on my arrival. patient does admit that he has some discomfort but is unsure if it is from having packing in it for 2 days prior. Onset: Today, Sudden Duration: Minutes:, Constant Location: Reports: Face Quality: Reports: Ache Associated Symptoms: Reports: Cough, Nausea/Vomiting. Denies: Confusion, Chest Pain - Related Data Allergies Allergy/AdvReac Type Severity Reaction Status Date / Time No Known Allergies Allergy Verified 06/28/19 22:17 Home Meds: Home Meds Pantoprazole [ProTONIX] 40 mg PO DAILY@0700 #30 tab.cr 05/22/18 [Rx] Tamsulosin [Flomax] 0.4 mg PO BEDTIME #30 cap.er 05/22/18 [Rx] Clopidogrel [Plavix] 75 mg PO DAILY 09/27/18 [History] Levalbuterol HCl 1 dose INH BID 09/27/18 [History] Nitroglycerin [Nitrostat] 0.4 mg SL Q5M PRN MDD 1.2 09/27/18 [History] atorvaSTATin [Lipitor] 40 mg PO DAILY 09/27/18 [History] Aspirin [Halfprin] 81 mg PO DAILY 07/01/19 [History] Docusate Sodium [Stool Softener] 100 mg PO BID 07/01/19 [History] Metoprolol Succinate [Toprol XL] 12.5 mg PO DAILY 07/01/19 [History] Oxymetazoline HCl [Nasal [place]] 1 spray NS ASDIRECTED 07/01/19 [History] Polyethylene Glycol 3350 [Purelax] 17 gm PO DAILY 07/01/19 [History] Sennosides/Docusate Sodium [Hm Senna-S Tablet] 2 each PO DAILY 07/01/19 [History ] Past Medical History HEENT History: Reports: Epistaxis Cardiovascular History: Reports: High Cholesterol, Hypertension, [place] Other Cardiovascular History: CORONARY ATHEROSCLEROSIS Respiratory History: Reports: Other (See Below) Other Respiratory History: MULTIPLE NEBULIZERS, NOT SURE IF HE HAS COPD Gastrointestinal History: Reports: PUD Other Gastrointestinal History: ESOPHAGITITS Genitourinary History: Reports: BPH Musculoskeletal History: Reports: Osteoarthritis Oncologic (Cancer) History: Reports: Esophageal - Past Surgical History GI Surgical History: Reports: Colonoscopy, EGD Social & Family History - Family History Family Medical History: Noncontributory - Tobacco Use Smoking Status *Q: Never Smoker - Caffeine Use Caffeine Use: Reports: Soda - Recreational Drug Use Recreational Drug Use: No - Living Situation & Occupation Living situation: Reports: Single, Alone 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[employer]) ED ROS GENERAL - Review of Systems Review Of Systems: See Below Constitutional: Reports: No Symptoms HEENT: Reports: Nosebleed Respiratory: Denies: Shortness of Breath Cardiovascular: Denies: Chest Pain, Edema GI/Abdominal: Denies: Abdominal Pain, Nausea, Vomiting : Reports: No Symptoms Musculoskeletal: Reports: No Symptoms Skin: Reports: No Symptoms Neurological: Reports: No Symptoms ED EXAM, GENERAL - Physical Exam Exam: See Below Exam Limited By: No Limitations General Appearance: Alert, WD/WN, No Apparent Distress Ears: Normal External Exam, Normal TMs Nose: Other (minimal blood in nare after clamped removed. Cleaned out, does have area of irritation and bleeding to anterior septum. Cauterized with silver nitrate stick. ) Throat/Mouth: Normal Inspection, Normal Oropharynx Head: Normocephalic Neck: Normal Inspection, Supple, Non-Tender Course - Vital Signs Last Recorded V/S: Last Vital Signs Temp 97 F 07/01/19 16:25 Pulse 69 07/01/19 16:25 Resp 18 07/01/19 16:25 BP 145/79 H 07/01/19 16:25 Pulse Ox 94 L 07/01/19 16:25 - Re-Assessments/Exams Free Text/Narrative Re-Assessment/Exam: 07/01/19 1730-No further bleeding over the last 40 minutes. [place] Continue with nasal saline. cautioned patient about clearing throat, blowing nose, bending or sneezing if possible. Departure - Departure Time of Disposition: 17:39 Disposition: Home, Self-Care 01 Condition: Fair Clinical Impression: Epistaxis - Discharge Information *PRESCRIPTION DRUG MONITORING PROGRAM REVIEWED*: No *COPY OF PRESCRIPTION DRUG MONITORING REPORT IN PATIENT CELINE: No Referrals: PCP,Unknown [Primary Care Provider] - Forms: ED Department Discharge Additional Instructions: 1. Continue saline nasal spray as per his previous orders 2. Try to avoid bending, sneezing or coughing 3. Call with questions or concerns, return if unable to control bleeding Sepsis Event Note - Evaluation Sepsis Screening Result: No Definite Risk - Focused Exam Vital Signs: Vital Signs Temp Pulse Resp BP Pulse Ox 07/01/19 16:25 97 F 69 18 145/79 H 94 L Date Exam was Performed: 07/01/19 Time Exam was Performed: 17:48
== END 2019-07-01 17:50 | disposition home or self-care (01) ==
LOC: CC.ED 16:25
DX: R04.0 Epistaxis (principal); I10 Essential (primary) hypertension; E78.00 Pure hypercholesterolemia, unspecified; Z79.82 Long term (current) use of aspirin; Z79.899 Other long term (current) drug therapy; Z86.73 Personal history of transient ischemic attack (TIA), and cerebral infarction without residual deficits; Z79.02 Long term (current) use of antithrombotics/antiplatelets
CPT/HCPCS: 30901; 99283; 99283-25